=== PATIENT | female | born 1935 | race American Indian/Alaskan Native ===

== ENCOUNTER 2016-10-16 13:29 | Emergency (ER) | payer MEDICARE, MEDICAID ==
[~2016-10-16] VITALS: Ht 152.4 cm; Wt 56.9 kg
[~2016-10-16 13:29] MED LIST: AMLO5TAB2 PO; ASPI-515 PO; ATEN25TA PO; CALC500T10 PO; CHOL100011 PO; CYCL1DRO EACHEYE; FLUO20TA25 PO; LORA10TA3 PO; LOVA20TA2 PO; METF10002 PO; MULT-658 PO; NITR100C PO; POLY15DR27 EACHEYE; SULF1TAB24 PO; ZOLP10TA5 PO
[2016-10-16] MEDS ORDERED: ONDANSETRON 2MG/ML, 2ML ONE (13:55)
[2016-10-16] MEDS ORDERED: FAMOTIDINE 20 MG/2 ML ONE (13:55)
[2016-10-16] MEDS ORDERED: ONDANSETRON 2MG/ML, 2ML IVPush ONE (14:00)
[2016-10-16] MEDS ORDERED: SODIUM CHLORIDE FLUSH 10ML SYR IVF ONE (14:00)
[2016-10-16] MEDS ORDERED: SODIUM CHLORIDE 0.9% 1,000ML IVBOLUS ONE ×2 (14:00→16:00)
[2016-10-16] MEDS ORDERED: FAMOTIDINE 20 MG/2 ML IVP ONE (14:00)
[2016-10-16 14:31] LABS: ASPARTATE AMINO TRANSFERASE 25 U/L (15-37); BLOOD UREA NITROGEN 50 mg/dL (7-18)
[2016-10-16] MEDS ORDERED: OMEP20CA14 PO (14:54)
[2016-10-16] MEDS ORDERED: CEFTRIAXONE PMX 1GM/50ML 50 ML IVPB ONE (15:30)
[2016-10-16] MEDS ORDERED: CEFTRIAXONE PMX 1GM/50ML 50 ML ONE (15:41)
[2016-10-16 15:48] VITALS: BP 132/54
[2016-10-16] MEDS ORDERED: OMNIPAQUE 350 MG/ML, 100ML BOTTLE ONE (15:49)
== END 2016-10-16 16:40 | disposition home or self-care (01) ==
LOC: ED 14:28
DX: N30.00 Acute cystitis without hematuria (principal); E86.0 Dehydration; R11.2 Nausea with vomiting, unspecified; R19.7 Diarrhea, unspecified
CPT/HCPCS: 36415; 74177; 80053; 81001; 83690; 85025; 87077; 87086; 87186; 96361; 96365; 96375; 99285; J0696; J2405; J7030; Q9967; S0028

== ENCOUNTER 2018-06-27 14:08 | Emergency (ER) | payer MEDICARE, MEDICAID ==
[~2018-06-27] VITALS: Ht 160 cm; Wt 53.3 kg
[~2018-06-27 14:08] MED LIST changes: +AMLO-150 PO; -AMLO5TAB2 PO; +LORA-247 PO; -LORA10TA3 PO; +OMEP20CA14 PO
[2018-06-27] MEDS ORDERED: SODIUM CHLORIDE FLUSH 10ML SYR IVF ONE (14:30)
[2018-06-27 14:57] LABS: ALANINE AMINOTRANSFERASE 21 U/L (12-78); ALBUMIN 3.4 g/dL (3.4-5.0); ANION GAP 6 mmol/L (5-15); CALCIUM 8.7 mg/dL (8.5-10.1); CHLORIDE 103 mmol/L (98-107); CREATININE 0.77 mg/dL (0.55-1.02)
[2018-06-27 14:58] LABS: BASOPHILS # (AUTO) 0.04 x10^3/uL (0-0.1); BASOPHILS % (AUTO) 1 % (0-1); EOSINOPHILS # (AUTO) 0.26 x10^3/uL (0-0.4); EOSINOPHILS % (AUTO) 5 % (1-7); LYMPHOCYTES # (AUTO) 1.98 x10^3/uL (1-3.4); LYMPHOCYTES % (AUTO) 37 % (22-44); MD NO; MEAN CORPUSCULAR HEMOGLOBIN 30.3 pg (27.0-34.8); MEAN CORPUSCULAR HGB CONC 33.2 g/dL (32.4-35.8); MEAN CORPUSCULAR VOLUME 91.2 fL (80-100); MEAN PLATELET VOLUME 9.9 fL (7.4-10.4); MONOCYTES # (AUTO) 0.22 x10^3/uL (0.2-0.8); MONOCYTES % (AUTO) 4 % (2-9); NEUTROPHILS # (AUTO) 2.91 x10^3/uL (1.8-6.8); NEUTROPHILS % (AUTO) 54 % (42-75); PLATELET COUNT 201 x10^3/uL (130-400); RED CELL DISTRIBUTION WIDTH 14.4 % (9.6-15.2)
[2018-06-27 14:59] LABS: ALKALINE PHOSPHATASE 105 U/L (45-117); BILIRUBIN,TOTAL 0.6 mg/dL (0.2-1.0); TOTAL PROTEIN 7.5 g/dL (6.4-8.2)
[2018-06-27 16:33] LABS: MICROSCOPIC INDICATED
[2018-06-27 16:36] LABS: CULTURE INDICATED? YES
[2018-06-27] MEDS ORDERED: OMNIPAQUE 350 MG/ML, 100ML BOTTLE ONE (16:46)
--- NOTE | 2018-06-27 16:55 | NUR ---
STARTED 20G IN RIGHT AC FOR CT. SENT PT TO [facility] [address]
--- NOTE | 2018-06-27 16:55 | NUR ---
TO [facility]. EXAMINING PT
--- NOTE | 2018-06-27 16:57 | NUR ---
ABDOMINAL PAIN STARTED LAST WEEK, WORSENING TODAY
[2018-06-27 18:36] VITALS: BP 210/99
--- NOTE | 2018-06-27 18:37 | NUR ---
PT AND SON GIVEN DISCHARGE INSTRUCTIONS. ASSISTED TO WHEELCHAIR AND TO DISCHARGE WINDOW
== END 2018-06-27 18:40 | disposition home or self-care (01) ==
LOC: ED 18:19
DX: N30.00 Acute cystitis without hematuria (principal); K59.00 Constipation, unspecified; R10.32 Left lower quadrant pain; I10 Essential (primary) hypertension; E11.9 Type 2 diabetes mellitus without complications; Z87.891 Personal history of nicotine dependence
CPT/HCPCS: 36415; 74177; 80053; 81001; 83690; 85025; 87086; 99284; Q9967

== ENCOUNTER 2019-10-02 12:48 | Emergency (ER) | payer MEDICARE, MEDICAID ==
[~2019-10-02] VITALS: Ht 157.5 cm; Wt 50.0 kg
[~2019-10-02 12:48] MED LIST changes: -OMEP20CA14 PO; +OMEP20CA20 PO
--- NOTE | 2019-10-02 12:48 | NUR ---
Pt BIB [facility] pt was shopping and driving a motorized scooter when she told family members that she was feeling tired. EMS reports pt had syncopal episode. Pt now A&O to her baseline which is to self and situation. Pt with slow speech, this is her baseline per family. Pt denies pain or any other complaint. Pt positioned for comfort in bed, continuous heart, oxygen and BP Monitors applied, all safety measures observed. Pt provided water to drink per request, ok per Dr. Duarte.
[2019-10-02 13:28] LABS: BASOPHILS # (AUTO) 0.03 x10^3/uL (0-0.1); BASOPHILS % (AUTO) 1 % (0-1); EOSINOPHILS # (AUTO) 0.19 x10^3/uL (0-0.4); EOSINOPHILS % (AUTO) 4 % (1-7); LYMPHOCYTES # (AUTO) 1.74 x10^3/uL (1-3.4); LYMPHOCYTES % (AUTO) 32 % (22-44); MD NO; MEAN CORPUSCULAR HEMOGLOBIN 31.3 pg (27.0-34.8); MEAN CORPUSCULAR HGB CONC 33.4 g/dL (32.4-35.8); MEAN CORPUSCULAR VOLUME 93.6 fL (80-100); MEAN PLATELET VOLUME 9.3 fL (7.4-10.4); MONOCYTES # (AUTO) 0.47 x10^3/uL (0.2-0.8); MONOCYTES % (AUTO) 9 % (2-9); NEUTROPHILS # (AUTO) 2.99 x10^3/uL (1.8-6.8); NEUTROPHILS % (AUTO) 55 % (42-75); PLATELET COUNT 179 x10^3/uL (130-400); RED BLOOD COUNT 3.43 x10^6/uL (3.82-5.3); RED CELL DISTRIBUTION WIDTH 13.8 % (9.6-15.2)
[2019-10-02] MEDS ORDERED: SODIUM CHLORIDE FLUSH 10ML SYR IVF ONE (13:30)
[2019-10-02] MEDS ORDERED: PLEASE ENTER HEIGHT AND WEIGHT MC SCH (13:30)
[2019-10-02] MEDS ORDERED: SODIUM CHLORIDE 0.9% 1,000ML IVBOLUS ONE (13:30)
[2019-10-02 13:41] LABS: ALBUMIN 2.7 g/dL (3.4-5.0); ANION GAP 7 mmol/L (5-15); CALCIUM 8.9 mg/dL (8.5-10.1); CHLORIDE 107 mmol/L (98-107); CREATININE 0.88 mg/dL (0.55-1.02)
[2019-10-02] MEDS ORDERED: LISI40TA PO (13:42)
[2019-10-02] MEDS ORDERED: LOPE2CAP PO (13:42)
[2019-10-02] MEDS ORDERED: SIMV20TA19 PO (13:42)
[2019-10-02] MEDS ORDERED: GABA300C PO (13:42)
[2019-10-02 13:45] LABS: TROPONIN I < 0.015 ng/mL (0.000-0.045)
--- NOTE | 2019-10-02 13:49 | NUR ---
Pt resting in bed, denies needs at this time.
--- NOTE | 2019-10-02 14:53 | NUR ---
Orthostatic VS performed per order. Pt tolerated well, denies dizziness or pain with change of position. Pt positioned for comfort in bed, denies other needs.
[2019-10-02 14:59] LABS: MICROSCOPIC INDICATED
--- NOTE | 2019-10-02 15:43 | NUR ---
Pt continues resting in bed, PINEDA, denies needs. Attempted to call pt's family members to see if they can come and pick her up. Awaiting call back.
[2019-10-02 16:22] VITALS: BP 148/78
== END 2019-10-02 16:25 | disposition home or self-care (01) ==
LOC: ED 15:40
DX: R55 Syncope and collapse (principal); R40.0 Somnolence; R94.31 Abnormal electrocardiogram [ECG] [EKG]; I10 Essential (primary) hypertension; Z87.891 Personal history of nicotine dependence
CPT/HCPCS: 36415; 71045; 80048; 81001; 82040; 84484; 85025; 87077; 87086; 87147; 93005; 96360; 99285; J7030; 87186